=== PATIENT | female | born 1960 | race Caucasian/White ===

== ENCOUNTER 2018-03-27 06:17 | Day surgery (SDC) | payer OTHER, SELFPAY ==
[2018-03-07 09:45] VITALS: BMI 30.7
[2018-03-27] VITALS (20 sets, daily range): BP systolic 97–155; BP diastolic 60–93; PULSE 69–91; RESP 12–93; TEMP 35.9–36.9; O2SAT 93–98; BMI 29.5
--- NOTE | 2018-03-27 | PATH_ITS ---
[facility] Accession Number: [id number] . 01 Material submitted: . UTERUS AND BILATERAL FALLOPIAN TUBES . 02 Diagnosis: Uterus, Bilateral Fallopian Tubes, Hysterectomy, Bilateral Salpingo-oophorectomy: 1. Adenomyosis. 2. Leiomyomas. 3. Benign endometrial polyp. 4. Endometriosis of left fallopian tube. 5. Endosalpingiosis of left fallopian tube. 6. Bilateral paratubal cysts. 7. Inactive/noncycling endometrium, negative for hyperplasia or neoplasia. 8. Cervix, bilateral fallopian tubes, and uterus with no evidence of epithelial dysplasia or malignancy. [facility]/03/31/2018 . 02 Electronically signed: . Gertrudis Monet MD, Pathologist NPI- [id number] . 01 Gross description: . Received in formalin, labeled uterus, bilateral fallopian tubes, is a uterus (77 grams, 3.3 cm AP, 8.5 cm SI, 5.5 cm ML) with attached fimbriated fallopian tubes (right: length-5.5 cm, diameter-0.5 cm; left: length-4.7 cm, diametr-0.6 cm). The ovaries are absent. The cervix (1.5 cm AP, 2.5 cm ML) has a vaginal cuff (up to 1.7 cm in depth), transverse os, and patent endocervical canal. A olson rubbery polyp (3.9 x 0.5 x 0.2 cm) is attached to the posterior aspect of the endometrial cavity. The endometrium (average thickness-0.1 cm) is olson smooth and flat. The myometrium (thickness-1.5 cm) contains a solid firm white whorled well-circumscribed homogeneous nodule (2.0 x 1.4 x 1.3 cm). The serosa is olson smooth and shiny. The fallopian tubes have swift-purple smooth shiny serosa and olson unremarkable lumens. Section code: (A1) anterior cervix; (A2) posterior cervix; (A3, A4) anterior endomyometrium; (A5-A8) posterior endomyometrium, polyp is serially sectioned and entirely submitted in cassette A7; (A9) right fallopian tube, loan servicing representative serial sections; (A10) right fimbria, bivalved, entirely submitted; (A11) left fallopian tube, loan servicing representative serial sections; (A12) left fimbria, bivalved, entirely submitted. ([id number]) /MRV . 02 Pathologist provided ICD-10: N80.0, N84.0, N80.9, D25.9 . 02 CPT . 462319 Performed at: 01 [facility] [address] [place] [address], [place], [place] [id number] MD Andrez Shah MD Phone: [phone] Performed at: 02 [facility] [address] [place] [id number] MD Gertrudis Monet MD Phone: [phone]
--- NOTE | 2018-03-27 07:11 | PM.PREOP ---
Pre-operative Note Interval Note Pre-op Check: Yes History & Physical Reviewed by Physician Changes: No
[2018-03-27] MEDS: LACTATED RINGERS 1,000 ML 42 ML IV ×2 (07:32→09:12)
[2018-03-27] MEDS: CEFAZOLIN 2 GM/100 ML FROZ.PIGGY IV (07:45)
--- NOTE | 2018-03-27 08:31 | SUR.OPER ---
Lithotomy on padded OR bed. Lucky Pad Positioner under torso. Head on pillow, arms padded and tucked at sides. Legs secured in padded yellow fins stirrups.
[2018-03-27] MEDS: BUPIVACAINE 0.5% W/ EPI (PF) VIAL 30 ML INJ (08:45)
--- NOTE | 2018-03-27 10:19 | SUR.OPER ---
petechiae noted to both anterior thighs where drapes were during procedure after they were removed. dr. shin notified.
[2018-03-27] MEDS: METOCLOPRAMIDE 10 MG/2 ML INJ IV (10:45)
[2018-03-27] MEDS: HYDROMORPHONE 2 MG INJ 0.5 MG IV ×4 (10:45→11:15)
[2018-03-27] MEDS: LACTATED RINGERS 1,000 ML 100 ML IV ×2 (11:54→21:36)
[2018-03-27] MEDS: KETOROLAC 30 MG/ML VIAL IV ×3 (12:05→23:43)
--- NOTE | 2018-03-27 15:04 | CM.IDA ---
Discharge Planning/Care Management CM Discharge Assessment Start: 03/27/18 15:00 Freq: Status: Active Protocol: Document 03/27/18 15:01 RUPINDER (Rec: 03/27/18 15:04 RUPINDER [id number]) Discharge Planning Assessment Assigned Finished Cloth Examiner MARVA Pitt DPOA/Assigned Designee Name Percy Donahue, spouse Contact Information [phone] Advance Directives? No: Declines further information History Provided By Patient Prior Living Arrangements House Household Members spouse Type of transporation used prior to Drives own vehicle admit Independent with ADL's Yes Is patient alert and oriented? Yes Caregiver for Another Yes: Professionally Comment Met w/pt and her friend at bedside, explained SW role. 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 She has her and good friend available for around the clock care as needed for at least a week, possibly two. Pt is confident about her return home which will likely be tomorrow. Contact information on whiteboard. BREAKFAST SUPERVISOR team will follow closely in case DC needs arise. Barriers to Discharge No Discharge Plan Home Transportation Arrangement Family Referrals Initiated None needed Whiteboard Updated in Patient Room with Yes name and ext. # of Finished Cloth Examiner Review Status In Process
--- NOTE | 2018-03-27 15:35 | PC.NURSE ---
Admit Note: Patient admitted from pacu this shift at 1130. Patient having nausea that is passing with rest. Patient declined medication for nausea. 3 Lap sites intact, no drainage. Villeda to gravity, patent, minimal drainage on marnie-pad. No acute distress, VSS. Patient oriented to room and call light.
[2018-03-27] MEDS: FLUTICASONE 120 SPRAY/16 GM SPRAY.SUSP NASAL (20:14)
[2018-03-27] MEDS: DOCUSATE 250 MG CAPSULE PO (20:14)
[2018-03-28 00:05] VITALS: BP 116/70; PULSE 75; RESP 16; TEMP 37.3; O2SAT 97
[2018-03-28] MEDS: KETOROLAC 30 MG/ML VIAL IV (05:37)
--- NOTE | 2018-03-28 05:42 | P.OP_ITS ---
Operative Date/Time/Diagnoses Date of procedure: 03/27/18 Time of procedure: 10:45 Pre-op diagnosis: Uterine prolapse Cystocele Rectocele Post-op diagnosis: same Procedure: Procedures Operation Date: 03/27/18 07:45 Actual Procedures Side Surgeon p GINI w/Bilat Salpingectomy Janet Rincon MD s Colporrhaphy Anterior/Posterior Colporrhaphy Janet Rincon MD Indications: Symptomatic uterine prolapse, cystocele, and rectocele Surgeon: Janet Rincon Train Engineer: Jovanny Moore Anesthesia Type: General Operative Notes Findings: 8 week size uterus Normal ovaries and tubes Normal liver and gallbladder Normal appendix Endometriosis at the bladder flap Closure Type: primary Specimen(s): left tube, right tube and uterus Applied: catheter Estimated blood loss (mL): 200 Blood products transfused: none Procedure in detail: The patient was taken to the operating room where she was placed in the dorsal supine position. After adequate general endotracheal anesthesia was achieved, she was placed in the dorsal lithotomy position, and prepped and draped in the usual sterile fashion. A time-out was performed. A bivalve speculum was placed into the vagina, and a single-tooth tenaculum was placed on the anterior lip of the cervix. The cervical os was sequentially dilated until the ZUMI uterine manipulator could pass easily into the endometrial cavity. The single-tooth tenaculum was removed from the anterior lip of the cervix, and the bivalve speculum was removed from the vagina. Attention was then turned to the abdomen where 6 mL of half percent Marcaine with epinephrine were injected in the umbilical fold. A 5 mm incision was made. The Verhees needle was placed into the peritoneal cavity, and its placement confirmed by aspiration and drop test. The abdominal cavity was insufflated with 4 L of CO2. The Verhees needle was removed, and a 5 mm trocar was placed without difficulty. Initial inspection of the pelvis revealed the findings noted above. 2 other incisions were made midway between the pubic symphysis and umbilicus 4 cm lateral to the midline. These were 5 mm incisions. Two 5 mm trochars were placed under direct visualization. The right tube was grasped with an atraumatic grasper. The mesosalpinx on the right side was cauterized and cut with plasma kinetic. The round ligament and broad ligament were cauterized and cut. This was continued to the level of the uterine arteries. This was repeated on the patient's left side. The instruments were removed from the abdomen. Attention was then turned to the vagina where the ZUMI uterine manipulator was removed from the uterus. The cervix was grasped with a 4 tooth tenaculum. 10 mL of quarter percent Marcaine with epinephrine were injected circumferentially around the cervix. The cervix was circumscribed. The bladder and rectum were dissected off the lower uterine segment and cervix with an open moistened Ray-Clem. The peritoneum was entered sharply with the Metzenbaum scissors anteriorly and a [place] placed. The peritoneum was entered posteriorly with the Metzenbaum scissors and the long weighted speculum was placed into the posterior cul-de-sac. The uterosacral cardinal ligament complexes were clamped, transected, and suture ligated with 0 Vicryl. These were attached to hemostat. The uterine arteries were clamped, transected, and suture ligated with 0 Vicryl. The uterus was handed off for specimen with the tubes and ovaries. The peritoneum was closed with a pursestring suture with 2-0 Vicryl. The vaginal cuff was closed with 0 Vicryl with a series of simple interrupted sutures. The tagged sutures were cut. 2 Allis clamps were placed at the apex of the cystocele. 6 mL of half percent Marcaine with epinephrine were injected and an incision was made with a #10 blade between the 2 Allis clamps. Wide Allis clamps were placed on the midline of the cystocele approximately 5. The mucosa was undermined using the Metzenbaum scissors and the mucosa incised in the midline moving the wide Allis clamps to the edges of the mucosa. The mucosa was dissected off the underlying fascia using an open moistened Ray-Clem and a #10 blade. The fascia was reapproximated with 0 Vicryl with a series of horizontal mattress sutures. The excess vaginal mucosa was excised. The mucosa was closed using simple interrupted sutures with 2-0 Vicryl including the underlying fascia to close the space. The weighted speculum was removed from the vagina. Allis clamps were placed at the mucocutaneous junction at the introitus. 6 mL of half percent Marcaine with epinephrine were injected. An incision was made with a #10 blade between the 2 Allis clamps, and a triangular piece of skin and underlying subcutaneous tissue was removed. Allis clamps were placed in the midline of the rectocele. 10 mL of half percent Marcaine with epinephrine were injected submucosally. The mucosa was undermined using the Metzenbaum scissors and the mucosa incised in the midline, moving the wide Allis clamps to the mucosal edges. The underlying fascia was dissected off of th mucosa using an open moistened Ray-Clem and a #10 blade. The fascia was reapproximated using 0 Vicryl with a series of horizontal mattress sutures. The excess vaginal mucosa was excised. The mucosa was closed using a series of simple interrupted sutures with 2-0 Vicryl including the underlying fascia to close the space. On the perineum 0 Vicryl was used to reapproximate the levator muscle. The subcutaneous layer was closed with 2-0 Vicryl. The skin was closed with 3- 0 chromic in a subcuticular fashion. Hemostasis was achieved. A Betadine moistened vaginal pack was placed into the vagina. A rectal exam was done and there were no sutures palpable in the rectum. The urine was clear. Sponge, lap , and instrument counts were correct x-2. The patient tolerated the procedure well, was taken to PACU in stable condition. Complications: none Post-operative Condition: stable Disposition: PACU Plan for aftercare: To acute care after recovery
[2018-03-28 06:11] VITALS: BP 125/82; PULSE 90; RESP 16; TEMP 37.1; O2SAT 97
[2018-03-28 07:30] VITALS: BP 126/87; PULSE 81; RESP 18; TEMP 37.1; O2SAT 99
[2018-03-28] MEDS: DOCUSATE 250 MG CAPSULE PO (08:12)
[2018-03-28] MEDS: FLUTICASONE 120 SPRAY/16 GM SPRAY.SUSP NASAL (08:12)
[2018-03-28] MEDS: OXYCODONE/ACETAMINOPHEN 5/325 TABLET 1 TAB PO (10:03)
--- NOTE | 2018-03-28 12:58 | CM.DANOTE ---
Discharge Planning/Care Management Document 03/28/18 12:56 (Rec: 03/28/18 12:58 [id number]) Discharge Planning Assessment Assigned Office Director MARVA Ron DPOA/Assigned Designee Name Percy Donahue, spouse Contact Information [phone] Advance Directives? No: Declines further information History Provided By Patient Medical Record Prior Living Arrangements House Household Members spouse Type of transporation used prior to Drives own vehicle admit Independent with ADL's Yes Is patient alert and oriented? Yes Caregiver for Another Yes: Professionally Barriers to Discharge No Discharge Plan Home Transportation Arrangement Friend/[place] to provide transportation. Patient expecting to discharge home today. Referrals Initiated None needed Whiteboard Updated in Patient Room with Yes name and ext. # of Office Director Comment Patient has discharge orders home today. Met with patient and friends: agreeable to discharge. Patient has spouse and adult son at home to assist. No needs at this time. Review Status In Process Pre-Anesthesia Assessment Start: 03/07/18 09:45 Freq: Status: Complete Protocol: Document 03/07/18 09:45 [facility] (Rec: 03/07/18 10:41 CAB [id number]) Pre-Anesthesia Assessment Patient Information Reviewed Via Phone Assessment Assessment Completed With Patient Primary Care Provider Nicola Lyman Seen Specialist in Last 12 Months Yes Specialist Seen Decorating Equipment Setter Urologist Primary Language Syriac Local Sales Associate Required No Height 162.56 cm Weight 81.193 kg Body Mass Index (BMI) 30.7 Hearing Ability Normal Visual Assist Glasses Dentition Type Teeth, Natural Present Barriers to Learning None Other Aids No Hx Anesthesia Reactions Yes: Post-op nausea, vomiting, takes me a lot to come out Hx Family Anesthesia Reaction No Hx Malignant Hyperthermia No Hx Blood Transfusions No Anesthesia Review Requested No Java Swing Developer No alcohol intake current alcohol intake frequency a few times a month Smoking Status Former smoker how long ago did patient quit smoking Quit age 22 Substance Use Type does not use Pain Present Pain Reported Musculoskeletal Symptoms Back Pain Joint Pain History of Falling (Recent or History of No ) Patient is completely paralyzed or No completely immobile Mental Status Oriented to own ability Is patient on oxygen? No Does patient have MCLEAN/SOB No Hx Sleep Apnea No Suspected Sleep Apnea No Currently Taking a Beta Trevor No Can You Climb a Flight of Stairs Without Yes SOB Hx Chest Pain No Hx SOB No Hx Syncope or Dizziness No Anti-Coagulant Therapy No Has a College Specialist No Cardiac Testing No Hx Pacemaker/ICD No Pacemaker Rep Required? No Cardiac Clearance Received Not Applicable Diet Type At Home Regular dysphagia No Bladder Pattern Nocturia Urgency Urinary Catheter Present No Hx Urinary Self Catheterization No Diabetes No Patient No Lactating No Hx Drug Resistant Organism No Presence of External or Internal Medical No Devices Have you traveled outside the [employer] States in the last 30 days? Marital Status Lives With spouse Prior Living Arrangements House Number of Floors (Floors) One Floor Number of Stairs To Enter/Railing? 5 stairs, railing present Support System Child/Children Friend(s) Spouse Does the Patient Have Assistance After Yes Surgery Patient Discharge Plan Description Return Home Comment Pt advised overnight length of stay per surgeon's office Feels Safe in Current Environment Yes Been Physically Hurt or Threatened By a No Person in Current Environment Do you have thoughts of harming yourself None or others? Are you currently considering suicide? No Do you have a plan to hurt yourself or No Plan others? Do You Have Any Spiritual Beliefs That No May Affect Your HC Choices? Do You Have Any Cultural Practices That No May Affect Your HC Choices? Spiritual Referral None Comment Mandaen Who Can We Speak to About Patient's Care Family, friends Identifying Code for Release of Patient Declines to issue Information Health Care Proxy/Next of Kin Percy () Health Care Proxy Phone Number cell: [phone] Home: Emergency Contact Name Percy () Emergency Contact Phone Number cell: [phone] Home: Advance Directives? No: Declines further information Power of Certified Registered Nurse Practitioner No PAC Instructions Do not shave/clip surgical site Medications to take/avoid No ETOH/petroleum product on skin DOS NPO Post-op transportation Sturdy shoes/comfortable clothes Do not bring valuables and remove jewelry
--- NOTE | 2018-03-28 13:07 | PC.NURSE ---
Day Shift- Pt A&OX4 able to make needs known. Voided approx 50mls at 0715 after talley catheter removal around 0620. Up indep in room to chair and bed with steady gait. Voided 100mls with PVR of 33mls, then again at 1230 voided 200 mls with PVR of 50mls. Minimal spotting discharge on pad. Had moderate soft formed BM per pt report. Explained to not strain during passing flatus or having BM, pt stated she agreed. Abd incisions X3 gauze and tegaderm CDI. Pain controlled with prn Percocet at 1000 from -07/06. Pt states is ready for discharge. Reviewed written and verbal discharge information from Discharge Summary. All questions answered, no further voiced concerns. Follow up appointment made per Dr. Rincon request and pt aware. Pt's friend present in room to drive pt home. Pt left unit via wheelchair at 1300 in no distress with CERAMICS TECHNICIAN and all belongings.
--- NOTE | 2018-03-28 14:46 | PM.DS.1 ---
History of Present Illness Date Patient Seen: 03/28/18 Time Patient Seen: 07:50 Chief complaint: *OPB*[id number] Narrative: Patient is a 57-year-old who presented on 03/27/2018 for a scheduled laparoscopic-assisted vaginal hysterectomy, bilateral salpingectomy, and anterior and posterior repair. Her surgery was uncomplicated. On postop day # 1 her catheter was removed and vaginal packing was removed. The patient voided 150 cc with a 30 cc residual. She had a bowel movement prior to discharge. Discharge Providers Date of admission: 03/27/2018 Consults: None Discharge provider: Janet Rincon MD Discharge Date: 03/28/18 Summary Discharge Diagnosis: Cystocele Rectocele Uterine prolapse Hospital Course: The patient presented on 03/27/2018 for a scheduled LAVH/bilateral salpingectomy/anterior and posterior repair She underwent the above procedures without complication. On post op day # 1 her catheter was removed as well as a vaginal packing. She was able to void within 2 hr 150 cc with a 30 cc residual. Her urine was clear. She had a bowel movement prior to discharge. Exam Vital Signs (past 8 hours): - 03/28/18 07:30 Temperature 98.8 F Pulse Rate 81 Respiratory Rate 18 Blood Pressure 126/87 Pulse Oximetry 99 Oxygen Delivery Method Room Air Narrative Exam Narrative: Generally: Patient walking around the room, no acute distress Lungs: Clear to auscultation bilaterally Cardiovascular: Regular rate and rhythm Abdomen: Soft and flat, good bowel sounds Incisions: Clean dry and intact with op site Perineum: Dry Extremities: Negative Homans, no edema Discharge Plan Discharge Plan Patient Disposition: Home Discharge comment: Call with fever, chills, redness or drainage around the incisions. Ibuprofen 600 mg every 6 hr for the next week Percocet every 4 hr as needed Void every 3 hours, get up once at night to void Discharge Med Rec/Prescriptions Prescriptions: New oxycodone-acetaminophen [Percocet] 5-325 mg tablet 1 tab PO Q4-6H PRN (Reason: pain) Qty: 30 RF: 0 Continue omega-3 fatty acids [Fish Oil Concentrate] 1,000 mg capsule 1,000 mg PO DAILY RF: 0 Sheila's wort 300 mg capsule 300 mg PO DAILY RF: 0 cranberry 400 mg capsule 400 mg PO DAILY RF: 0 cholecalciferol (vitamin D3) 4,000 unit capsule 4,000 unit PO DAILY RF: 0 echinacea 400 mg capsule 400 mg PO TID PRN (Reason: colds, allergy) RF: 0 magnesium 250 mg Tablet 250 mg PO DAILY RF: 0 fluticasone [Aller-Oziel] 50 mcg/actuation [place],Suspension 1 spray INTRANASAL BID RF: 0 Carditone 2 tab PO QAM RF: 0 Discontinued compounded estrogen 1 dose TOP DAILY RF: 0 meloxicam 15 mg tablet 15 mg PO DAILY RF: 0 baclofen 10 mg tablet 10 mg PO TID PRN (Reason: pain) RF: 0 naproxen sodium [Aleve] 220 mg Capsule 220 mg PO BID PRN (Reason: pain) RF: 0 nystatin-triamcinolone 100,000-0.1 unit/gram-% ointment 1 applictn TOP BID RF: 0 Follow up/Referrals: Janet Rincon MD [Physician] - 04/10/18 1:30 pm (call & schedule follow up appointment with dr rincon for 2 weeks from discharge [phone] ) Discharge Orders: Discharge (Order); Ordered 03/28/18 Ordered By: Janet Rincon Provider Discharge Instructions Diet: Diet as Tolerated Activity: Walking only No intercourse Other treatments: Void at least every 3 hours during the day and at least once during the night. Skin/Wound/Dressing Care Report to your healthcare provider any signs of infection, such as:: chills, fever, increased pain, unusual drainage and unusual redness Dressing: Remove outer plastic dressings after first shower as well as guaze Leave steri strips in place Visit Report/Discharge Packet Instructions: Progress in Stroke Prevention, DI for Vaginal Prolapse, DI for Hysterectomy, How to Prevent Falls, Hysterectomy -- Laparoscopic Surgery Stand Alone Forms: Surgery Discharge Discharge Data Attending Provider: Janet Rincon Discharges patient from system. Discharge Date/Time: 03/28/18 13:00 Quality VTE Deep Vein Thrombosis/Pulmonary Embolism Present on Admission: No
== END 2018-03-28 13:00 | disposition home or self-care (01) ==
LOC: OR 06:20 → AC 06:21
PROVIDERS: Visit Provider Obstetrics & Gynecology
PROC: 0UT9FZZ Resection of Uterus, Via Natural or Artificial Opening With Percutaneous Endoscopic Assistance (ICD-10-PCS; CPT 58552; principal; 2018-03-27 07:45)
PROC: (CPT 58552; 2018-03-27 07:45)
DX: N81.4 Uterovaginal prolapse, unspecified (principal); N80.0 Endometriosis of uterus; N84.0 Polyp of corpus uteri; D25.9 Leiomyoma of uterus, unspecified; N94.89 Other specified conditions associated with female genital organs and menstrual cycle; N83.8 Other noninflammatory disorders of ovary, fallopian tube and broad ligament
CPT/HCPCS: 58552; 57260; J0330; J0690; J1100; J1170; J1885; J2405; J2704; J2765; J3010

== ENCOUNTER → 2018-04-10 14:20 | Outpatient (CLI) | payer OTHER, SELFPAY ==
[2018-03-27 06:40] VITALS: BMI 29.5
== END ==
PROVIDERS: Visit Provider Obstetrics & Gynecology
DX: R30.0 Dysuria (principal)
CPT/HCPCS: 87086